=== PATIENT | male | born 1935 | race Caucasian/White ===

== ENCOUNTER 2020-03-22 16:36 | Inpatient (IN) ==
[2020-03-22 17:15] LABS: Basophils % 0.7 % (0.0-0.8); Eosinophils # 0.1 10*3/uL (0.0-0.87); Eosinophils % 1.6 % (0.00-10.9); Hematocrit 35.5 VOL% (42.0-52.0); Hemoglobin 11.8 GM/DL (14.0-18.0); Immature Granulocytes % 0.2 %; Immature Granulocytes Absolute 0.01 #; Lymphocytes # 2.6 10*3/uL (1.4-4.0); Lymphocytes % 42.2 % (21.2-54.2); Mean Corpuscular HGB Conc 33.2 GM/DL (32-36); Mean Corpuscular Volume 92.4 FL (87-102); Mean Platelet Volume 9.7 FL (9.6-12.0); Monocytes % 10.6 % (1.7-12.7); Neutrophils % 44.7 % (38.7-73.9); Platelet Count 189 T/CUMM (130-400); Red Blood Count 3.84 MC/CUMM (3.8-5.5); Red Cell Distribution Width 14.2 % (9.3-17.3); White Blood Count 6.1 T/CUMM (4-12)
[2020-03-22 17:22] LABS: PT Patient Result 10.8 SECS (9.8-11.9); Partial Thromboplastin Time 28.8 SECS (23.9-33.8)
[2020-03-22 17:34] LABS: PT Patient Result 10.8 SECS (9.8-11.9); Partial Thromboplastin Time 28.2 SECS (23.9-33.8)
[2020-03-22 17:38] LABS: Albumin 3.6 G/DL (3.4-5.0); Bilirubin,Total 0.9 MG/DL (0.2-1.0); Calcium 9.2 MG/DL (8.5-10.1); Osmolality,Calculated 286.3 MOS/KG (273-304); Total Protein 6.8 G/DL (6.4-8.3)
[2020-03-22] MEDS ORDERED: LACTULOSE 20 GM/30 ML UDCUP PO PRN (19:09)
[2020-03-22] MEDS ORDERED: MAGNESIUM SULF RIDER 4 GM in PREMIX 1 EACH IV PRN (19:09)
[2020-03-22] MEDS ORDERED: ALUMINUM/MAGNES/SIMETH MAX STR 30 ML UDCUP PO PRN (19:09)
[2020-03-22] MEDS ORDERED: ONDANSETRON 4 MG/2 ML VIAL IV PRN (19:09)
[2020-03-22] MEDS ORDERED: diphenhydrAMINE CAP 25 MG CAPSULE PO PRN (19:09)
[2020-03-22] MEDS ORDERED: MAGNESIUM SULF RIDER 2 GM in PREMIX 1 EACH IV PRN (19:09)
[2020-03-22] MEDS ORDERED: ZALEPLON 5 MG CAPSULE PO PRN (19:09)
[2020-03-22] MEDS ORDERED: hydrALAZINE 20 MG/1 ML VIAL IV PRN (19:18)
[2020-03-22] MEDS ORDERED: POTASSIUM CHLORIDE 20 MEQ TABLET PO PRN (19:18)
[2020-03-23 08:13] LABS: Apearance,Urine CLEAR (Clear); Bilirubin,Urine Negative (Negative); Blood, Urine Negative (Negative); Glucose,Urine (UA) Negative (Negative); Ketones,Urine Negative (Negative); Nitrite,Urine Negative (Negative); Protein,Urine Negative; RBC,Urine 1 /HPF (0-4); Urine Color Straw (Yellow); Urine Specific Gravity 1.012 (1.001-1.035); Urine Urobilinogen < 2.0 EU/DL (0.2-1.0); WBC,Urine <1 /HPF (0-6)
[2020-03-23 08:18] LABS: Barbiturates Screen,Urine Negative (Negative); Benzodiazepines Screen,Urine Negative (Negative); Cannabinoid Screen,Urine Negative (Negative); Opiate Screen,Urine Negative (Negative); Phencyclidine Screen,Urine Negative (Negative)
[2020-03-23] MEDS: PANTOPRAZOLE 40 MG TABLET PO SCH (08:22)
[2020-03-23] MEDS ORDERED: ATROPINE 1 MG/10 ML SYRINGE IV PRN (13:11)
[2020-03-23] MEDS ORDERED: amLODIPine 2.5 MG TABLET PO SCH (13:30)
[2020-03-23] MEDS: ROSUVASTATIN 10 MG TABLET PO SCH (14:24)
[2020-03-23] MEDS: LOSARTAN 50 MG TABLET PO SCH (14:24)
[2020-03-23] MEDS ORDERED: LORazepam 2 MG/1 ML VIAL IV ONE (21:52)
[2020-03-23] MEDS ORDERED: NITROGLYCERIN SL 0.4 MG TABLET SL ONE ×2 (21:59→22:03)
[2020-03-23] MEDS ORDERED: NITROGLYCERIN 2% OINT 1 INCH/GM PACK TOP ONE (21:59)
[2020-03-24 06:33] LABS: Basophils % 0.5 % (0.0-0.8); Eosinophils # 0.1 10*3/uL (0.0-0.87); Eosinophils % 0.9 % (0.00-10.9); Hematocrit 35.3 VOL% (42.0-52.0); Hemoglobin 11.5 GM/DL (14.0-18.0); Immature Granulocytes % 0.5 %; Immature Granulocytes Absolute 0.04 #; Lymphocytes # 1.8 10*3/uL (1.4-4.0); Lymphocytes % 21.4 % (21.2-54.2); Mean Corpuscular HGB Conc 32.6 GM/DL (32-36); Mean Corpuscular Volume 94.9 FL (87-102); Mean Platelet Volume 10.1 FL (9.6-12.0); Monocytes % 9.7 % (1.7-12.7); Platelet Count 180 T/CUMM (130-400); Red Blood Count 3.72 MC/CUMM (3.8-5.5); Red Cell Distribution Width 13.8 % (9.3-17.3); White Blood Count 8.6 T/CUMM (4-12)
[2020-03-24 06:54] LABS: Calcium 8.8 MG/DL (8.5-10.1); Osmolality,Calculated 284.4 MOS/KG (273-304)
[2020-03-24] MEDS ORDERED: ceFAZolin 1,000 MG VIAL IRRIG ONE (07:03)
[2020-03-24] MEDS ORDERED: DIAZEPAM 5 MG TABLET PO ONE (07:03)
[2020-03-24] MEDS ORDERED: diphenhydrAMINE CAP 25 MG CAPSULE PO ONE (07:03)
[2020-03-24] MEDS ORDERED: ceFAZolin 1,000 MG in SYRINGE 1 EACH IV ONE (07:03)
[2020-03-24] MEDS ORDERED: SODIUM CHLORIDE 0.9% 1,000 ML IV SCH ×2 (07:30)
[2020-03-24] MEDS: LOSARTAN 50 MG TABLET PO SCH (08:34)
[2020-03-24] MEDS: amLODIPine 2.5 MG TABLET PO SCH ×2 (08:34→20:43)
[2020-03-24] MEDS: ENOXAPARIN 40 MG/0.4 ML SYRINGE SUBCUT SCH (09:56)
[2020-03-24] MEDS: LORATADINE 10 MG TABLET PO SCH (09:56)
[2020-03-24] MEDS: NITROGLYCERIN 2% OINT 1 INCH/GM PACK TOP SCH ×3 (09:56→20:44)
[2020-03-24] MEDS: PANTOPRAZOLE 40 MG TABLET PO SCH (09:57)
[2020-03-24] MEDS: TRAVOPROST 0.004% OPH SOLN 2.5 ML BOTTLE BOTH EYES SCH (09:57)
[2020-03-24] MEDS: CHOLECALCIFEROL 1,000 UNIT TABLET PO SCH (09:57)
[2020-03-25] MEDS: NITROGLYCERIN 2% OINT 1 INCH/GM PACK TOP SCH ×2 (03:20→12:19)
[2020-03-25] MEDS ORDERED: DIAZEPAM 5 MG TABLET PO ONE (06:00)
[2020-03-25] MEDS ORDERED: ceFAZolin 1,000 MG in SYRINGE 1 EACH IV ONE (06:00)
[2020-03-25] MEDS ORDERED: ceFAZolin 1,000 MG VIAL IRRIG ONE (06:00)
[2020-03-25] MEDS ORDERED: diphenhydrAMINE CAP 25 MG CAPSULE PO ONE (06:00)
[2020-03-25 06:15] LABS: Basophils % 0.3 % (0.0-0.8); Eosinophils % 0.4 % (0.00-10.9); Hematocrit 33.3 VOL% (42.0-52.0); Immature Granulocytes % 0.3 %; Immature Granulocytes Absolute 0.03 #; Lymphocytes # 1.9 10*3/uL (1.4-4.0); Lymphocytes % 20.8 % (21.2-54.2); Mean Corpuscular Volume 94.3 FL (87-102); Mean Platelet Volume 10.1 FL (9.6-12.0); Monocytes % 15.6 % (1.7-12.7); Neutrophils % 62.6 % (38.7-73.9); Platelet Count 159 T/CUMM (130-400); Red Blood Count 3.53 MC/CUMM (3.8-5.5); Red Cell Distribution Width 14.2 % (9.3-17.3); White Blood Count 9.3 T/CUMM (4-12)
[2020-03-25 06:46] LABS: Band Neutrophils 1 % (0-10); Eosinophils 2 % (0-10); Lymphocytes 23 % (20-55); Platelet Estimate Normal; Segmented Neutrophils 64 % (50-85); Total Cells Counted 100
[2020-03-25 06:49] LABS: Anisocytosis 1+; Poikilocytosis Slight
[2020-03-25 06:51] LABS: Calcium 8.7 MG/DL (8.5-10.1); Osmolality,Calculated 281.7 MOS/KG (273-304)
[2020-03-25] MEDS ORDERED: MIDAZOLAM 2 MG/2 ML VIAL ONE ×2 (07:16→08:44)
[2020-03-25] MEDS ORDERED: LIDOCAINE 1% 20 ML VIAL ONE (07:16)
[2020-03-25] MEDS ORDERED: fentaNYL 100 MCG/2 ML VIAL ONE (07:16)
[2020-03-25] MEDS ORDERED: TISSUE ADHESIVE 1 EACH APPLICATOR TOP ONE (07:17)
[2020-03-25] MEDS ORDERED: ceFAZolin 1,000 MG VIAL ONE (07:17)
[2020-03-25] MEDS ORDERED: HYDROmorphone 2 MG/1 ML VIAL ONE (09:38)
[2020-03-25] MEDS: LORATADINE 10 MG TABLET PO SCH (12:18)
[2020-03-25] MEDS: CHOLECALCIFEROL 1,000 UNIT TABLET PO SCH (12:18)
[2020-03-25] MEDS: amLODIPine 5 MG TABLET PO SCH ×2 (12:18→21:16)
[2020-03-25] MEDS: LOSARTAN 50 MG TABLET PO SCH (12:19)
[2020-03-25] MEDS: PANTOPRAZOLE 40 MG TABLET PO SCH (12:53)
[2020-03-25] MEDS: ENOXAPARIN 40 MG/0.4 ML SYRINGE SUBCUT SCH (13:08)
[2020-03-25] MEDS ORDERED: METOPROLOL TARTRATE 5 MG/5 ML VIAL IV ONE (14:32)
[2020-03-25] MEDS ORDERED: cloNIDine 0.1 MG TABLET PO PRN (14:33)
[2020-03-25] MEDS: TRAVOPROST 0.004% OPH SOLN 2.5 ML BOTTLE BOTH EYES SCH (15:05)
[2020-03-25] MEDS: ROSUVASTATIN 10 MG TABLET PO SCH (15:28)
[2020-03-25] MEDS: SODIUM CHLORIDE 0.9% 1,000 ML IV SCH (17:29)
[2020-03-25] MEDS: LABETALOL 100 MG TABLET PO SCH (21:16)
[2020-03-26] MEDS: ACETAMINOPHEN 325 MG TABLET PO PRN ×2 (01:39→09:02)
[2020-03-26 07:31] LABS: Basophils % 0.3 % (0.0-0.8); Eosinophils # 0.1 10*3/uL (0.0-0.87); Eosinophils % 0.9 % (0.00-10.9); Hematocrit 34.3 VOL% (42.0-52.0); Hemoglobin 11.3 GM/DL (14.0-18.0); Immature Granulocytes % 0.4 %; Immature Granulocytes Absolute 0.05 #; Lymphocytes # 1.9 10*3/uL (1.4-4.0); Lymphocytes % 16.3 % (21.2-54.2); Mean Corpuscular HGB Conc 32.9 GM/DL (32-36); Mean Platelet Volume 10.7 FL (9.6-12.0); Monocytes % 13.3 % (1.7-12.7); Neutrophils % 68.8 % (38.7-73.9); Platelet Count 144 T/CUMM (130-400); Red Blood Count 3.61 MC/CUMM (3.8-5.5); White Blood Count 11.5 T/CUMM (4-12)
[2020-03-26 07:40] LABS: Calcium 8.7 MG/DL (8.5-10.1)
[2020-03-26] MEDS ORDERED: amLODIPine 2.5 MG TABLET PO SCH (09:00)
[2020-03-26] MEDS: LABETALOL 100 MG TABLET PO SCH (09:02)
[2020-03-26] MEDS: CHOLECALCIFEROL 1,000 UNIT TABLET PO SCH (09:02)
[2020-03-26] MEDS: LOSARTAN 50 MG TABLET PO SCH (09:03)
[2020-03-26] MEDS: PANTOPRAZOLE 40 MG TABLET PO SCH (09:03)
[2020-03-26] MEDS: LORATADINE 10 MG TABLET PO SCH (09:04)
[2020-03-26] MEDS: TRAVOPROST 0.004% OPH SOLN 2.5 ML BOTTLE BOTH EYES SCH (09:06)
[2020-03-26] MEDS: SODIUM CHLORIDE 0.9% 1,000 ML IV SCH (09:07)
[2020-03-26 12:14] VITALS: BP 137/89
[2020-03-26] MEDS ORDERED: RIVAROXABAN 20 MG TABLET PO SCH (17:00)
== END 2020-03-26 14:10 | disposition home health service (06) | DRG 244 ==
LOC: N.ED 16:36 → N.EDINP 19:09 → N.TELEN 20:45
PROVIDERS: ADMIT Internal Medicine Cardiovascular Disease; ATTEND Internal Medicine Cardiovascular Disease